=== PATIENT | female | born 1995 | race African-American/Black ===

== ENCOUNTER 2024-05-24 06:44 | Day surgery (SDC) | payer BC ==
[2024-05-21 10:56] VITALS: BMI 26.4
[2024-05-24] MEDS ORDERED: Lidocaine 2% PF 5 ML VIAL ONE (08:08)
[2024-05-24] MEDS ORDERED: PROPOFOL 20 ML ONE (08:08)
[2024-05-24] MEDS ORDERED: Rocuronium Bromide 10 MG/ML (10ML VIAL) ONE (08:08)
[2024-05-24] MEDS ORDERED: Midazolam HCl 2 mg/2 ml Vial ONE (08:08)
[2024-05-24] MEDS ORDERED: Ketorolac Tromethamine 30 MG (1 mL) VIAL ONE (08:08)
[2024-05-24] MEDS ORDERED: Dexamethasone 4 mg/ml Vial ONE (08:08)
[2024-05-24] MEDS ORDERED: fentaNYL 50 mcg/mL 1 mL Vial ONE ×2 (08:08→09:48)
[2024-05-24] MEDS ORDERED: Ondansetron PF 4 MG/2 ML Vial ONE (08:08)
[2024-05-24] MEDS ORDERED: Bupivacaine/Epinephrine 0.25% 30 ML VIAL ONE (08:39)
[2024-05-24] MEDS ORDERED: ceFOXitin 1 GM VIAL ONE (08:50)
[2024-05-24] MEDS ORDERED: Meperidine HCl/PF 25 MG (1 mL) VIAL ONE (09:44)
== END 2024-05-24 11:00 | disposition home or self-care (01) ==
LOC: CSHSDC 06:44
PROVIDERS: ATTEND Surgery
PROC: 0HB8XZZ Excision of Buttock Skin, External Approach (ICD-10-PCS; principal; 2024-05-24)
DX: L05.91 Pilonidal cyst without abscess (principal); F17.200 Nicotine dependence, unspecified, uncomplicated
CPT/HCPCS: 87070; 87102; 87205; 87206; J0694; J1100; J1885; J2001; J2175; J2250; J2405; J2704; J3010